=== PATIENT | male | born 1960 | race Two or more races ===

== ENCOUNTER 2016-12-14 01:29 | Emergency (ER) | payer MEDICAID ==
[~2016-12-14] VITALS: Ht 170.2 cm; Wt 73.9 kg
--- NOTE | 2016-12-14 01:40 | NUR ---
PT C/O LEFT FLANK PAIN SINCE 3-4 DAYS, PT IS ALERT, ORIENTED X 4, NO RESP DISTRESS NOTED OR REPORTED UPON ASSESSMENT...MD AT BEDSIDE...
[2016-12-14] MEDS ORDERED: ARIP2TAB9 PO (01:44)
[2016-12-14] MEDS ORDERED: KETOROLAC TROMETHAMINE 60 MG INJ IM ONE ×2 (02:00→02:19)
[2016-12-14 02:15] LABS: *BILIRUBIN,URIN NEGATIVE (NEGATIVE); *BLOOD, URINE NEGATIVE (NEGATIVE); *CLARITY,URINE SLIGHTLY CLOUDY (CLEAR); *COLOR,URINE YELLOW (YELLOW); *KETONES,URINE NEGATIVE (NEGATIVE); *PROTEIN,URINE NEGATIVE (NEGATIVE); *UROBILINOGEN,URINE 0.2 E.U./dl (NORMAL); LEUKOCYTE ESTERASE ,URINE NEGATIVE (NEGATIVE); NITRITE, URINE NEGATIVE (NEGATIVE); PH,URINE 6.5 (5.0-8.0); UGLUCOSE NEGATIVE (NEGATIVE)
[2016-12-14 02:30] LABS: BACTERIA,URINE FEW /HPF (NONE SEEN); MUCUS,URINE MODERATE /LPF (0-FEW); RBC,URINE 0-3 /HPF (0-3); SQUAMOUS EPITHELIAL CELL,UR FEW /HPF (NONE SEEN); WBC,URINE 0-3 /HPF (0-3)
[2016-12-14 03:06] VITALS: BP 131/95
--- NOTE | 2016-12-14 03:06 | NUR ---
Patient discharged to home in stable conditon. Written and verbal after care instructions given. Patient verbalizes understanding of instructions. pt walked out of ER unassisted with belongings at side...
== END 2016-12-14 03:07 | disposition home or self-care (01) ==
LOC: EDBD 01:51 → ER 01:51
DX: M54.42 Lumbago with sciatica, left side (principal); F41.9 Anxiety disorder, unspecified; Z88.0 Allergy status to penicillin
CPT/HCPCS: 72100; A4663; J1885

== ENCOUNTER 2018-04-21 23:43 | Emergency (ER) | payer MEDICAID, OTHER ==
[~2018-04-21] VITALS: Ht 170.2 cm; Wt 73.9 kg
[~2018-04-21 23:43] MED LIST: ARIP2TAB3 PO
[2018-04-21] MEDS ORDERED: CLONAZEPAM 0.5 MG TABLET (23:55)
[2018-04-22] MEDS ORDERED: IBUPROFEN 800 MG TABLET PO ONE (00:15)
[2018-04-22] MEDS ORDERED: IBUPROFEN 800 MG TABLET ONE (00:17)
--- NOTE | 2018-04-22 00:18 | NUR ---
PT IN ROUTE TO RADIOLOGY FOR XRAY IN WHEELCHAIR WITH TRANSPORTER
--- NOTE | 2018-04-22 00:23 | NUR ---
PT RETURNS FROM RADIOLOGY IN WHEELCHAIR WITH TRANSPORTER
[2018-04-22 00:33] LABS: *BILIRUBIN,URIN NEGATIVE (NEGATIVE); *BLOOD, URINE NEGATIVE (NEGATIVE); *CLARITY,URINE CLEAR (CLEAR); *COLOR,URINE YELLOW (YELLOW); *KETONES,URINE TRACE (NEGATIVE); *PROTEIN,URINE NEGATIVE (NEGATIVE); LEUKOCYTE ESTERASE ,URINE NEGATIVE (NEGATIVE); NITRITE, URINE NEGATIVE (NEGATIVE); UGLUCOSE NEGATIVE (NEGATIVE)
[2018-04-22 00:38] LABS: BACTERIA,URINE NONE SEEN /HPF (NONE SEEN); RBC,URINE 0-3 /HPF (0-3); SQUAMOUS EPITHELIAL CELL,UR FEW /HPF (NONE SEEN); WBC,URINE 0-3 /HPF (0-3)
--- NOTE | 2018-04-22 02:00 | NUR ---
Patient discharged to home in stable conditon. Written and verbal after care instructions given. Patient verbalizes understanding of instructions. Patient able to ambulate unassisted with a steady gait. Patient left with all personal belongings.
[2018-04-22 02:23] VITALS: BP 122/72
== END 2018-04-22 02:00 | disposition home or self-care (01) ==
LOC: ER 23:47
DX: R10.9 Unspecified abdominal pain (principal); Z88.0 Allergy status to penicillin; Z79.899 Other long term (current) drug therapy
CPT/HCPCS: 71101; A4663